=== PATIENT | male | born 1975 | race Caucasian/White ===

== ENCOUNTER 2018-05-03 18:32 | Emergency (ER) | payer OTHER ==
[~2018-05-03] VITALS: Ht 175.3 cm; Wt 83.7 kg
[~2018-05-03 18:32] MED LIST: ADVIL,NUPRIN,M200 MG PO; BACLOFEN10 MG PO; CYCLOBENZAPRINE10 MG PO; INDOCIN50 MG PO; LIDODERM 5% P1 PATCH TD; LORTAB 5-325 M1 EACH PO; NABUMETONE750 MG PO; PERCOCET 5/31 TABLET PO
[2018-05-03 19:01] LABS: HEMATOCRIT 44.1 % (38.0-50.0); HEMOGLOBIN 15.7 G/DL (12.5-16.6); MCH 28.5 PG (29.0-34.0); MCHC 35.6 G/DL (30.0-36.0); PLATELET COUNT 256 K/uL (156-360); RBC DIS.WIDTH-CV 12.1 % (11.8-14.6); RBC DIS.WIDTH-SD 34.9 % (39-53); RED BLOOD COUNT 5.51 M/uL (4.00-5.50); WHITE BLOOD COUNT 7.4 K/uL (4.1-10.2)
[2018-05-03 19:21] LABS: CHLORIDE 100 mEq/L (99-109); POTASSIUM 3.9 mEq/L (3.7-5.4); SODIUM 134 mEq/L (136-147)
[2018-05-03 19:23] LABS: GLUCOSE 227 mg/dL (70-99)
[2018-05-03 19:27] LABS: GFR ESTIMATE (CALCULATED) > 59 mL/min/ (58.99-99999)
[2018-05-03 19:28] LABS: UREA NITROGEN (BUN) 12 mg/dL (9-23)
[2018-05-03 19:30] LABS: TROP-I INTERPRETATION NEGATIVE; TROPONIN-I < 0.01 ng/mL (0.0-0.30)
[2018-05-03 20:18] LABS: ALBUMIN 4.5 g/dL (3.2-4.8)
[2018-05-03 20:21] LABS: TOTAL PROTEIN 7.5 g/dL (6.4-8.3)
[2018-05-03 20:23] LABS: TOTAL BILIRUBIN 0.8 mg/dL (0.0-1.0)
[2018-05-03 20:24] LABS: ALKALINE PHOSPHATASE 69 IU/L (3-129)
[2018-05-03 20:26] LABS: AST (GOT) 17 IU/L (2-34); DIRECT BILIRUBIN 0.3 mg/dL (0.0-0.3)
[2018-05-03 20:27] LABS: ALT (GPT) 26 IU/L (3-49); LIPASE 40 U/L (1.0-51.0)
[2018-05-03] MEDS ORDERED: OMEPRAZOLE40 M1 PO (20:40)
[2018-05-03 21:39] LABS: TROP-I INTERPRETATION NEGATIVE; TROPONIN-I < 0.01 ng/mL (0.0-0.30)
[2018-05-03 21:55] VITALS: BP 137/88
== END 2018-05-03 21:55 | disposition home or self-care (01) ==
LOC: EME 18:32
PROVIDERS: Physician Assistant
DX: R07.9 Chest pain, unspecified (principal)
CPT/HCPCS: 71046; 80048; 80076; 83690; 84484; 85027; 93005; 99281; 99283